=== PATIENT | female | born 1980 | race Hispanic/Latino ===

== ENCOUNTER 2017-06-03 22:33 | Emergency (ER) | payer SELFPAY ==
[2017-06-03 23:02] LABS: Bilirubin Negative (Negative); Blood, Urine Negative (Negative); Glucose, Urine (Dipstick) Negative (Negative); Ketone, Urine Negative (Negative); Nitrite Negative (Negative); Protein, Urine (Dipstick) Negative (Neg-Trace); Urobilinogen 0.2 mg/dL (0.2-1.0)
[2017-06-03 23:48] LABS: #Basophils 0.1 thou/uL (0.0-0.2); #Eosinphils 0.2 thou/uL (0.0-0.7); #Lymphocytes 2.3 thou/uL (1.20-3.40); #Monocytes 0.4 thou/uL (0.11-0.59); %Basophils 0.9 % (0.0-1.0); %Eosinophils 2.4 % (0.0-10.0); %Lymphocytes 33.2 % (21.0-51.0); %Monocytes 6.1 % (0.0-10.0); Hematocrit 29.5 % (36.0-47.0); Mean Platelet Volume 7.3 fL (7.4-10.4); Red Blood Cell (RBC) Count 3.15 mill/uL (4.20-5.40); White Blood Cell (WBC) Count 6.9 thou/uL (4.8-10.8)
[2017-06-04 00:03] LABS: ALT (SGPT) 13 U/L (8-55); AST (SGOT) 19 U/L (5-34); Alkaline Phosphatase 131 U/L (40-150); Anion Gap 11 mmol/L (10-20); BUN (Urea Nitrogen) 9 mg/dL (7.0-18.7); Bilirubin, Total 0.3 mg/dL (0.2-1.2); Calc. Creatinine Clearance 0 mL/min (70-130); Carbon Dioxide 22 mmol/L (22-29); Chloride 108 mmol/L (98-107); Estimated GFR-MDRD Greater than 90; Globulin 3.8 g/dL (2.4-3.5); Lipase 11 U/L (8-78); Protein, Total 7.2 g/dL (6.0-8.3)
[2017-06-04] MEDS ORDERED: Iopamidol 370 76% 100 ML VIAL ONE (07:37)
--- NOTE | 2017-06-04 08:28 | CT ---
PRELIMINARY REPORT/[facility]/EMERGENCY AFTER HOURS PROCEDURE: EXAM: CT Abdomen and Pelvis With Intravenous Contrast CLINICAL HISTORY: 37 years old, female; Pain; Abdominal pain; Generalized; Prior surgery; Surgery type: Hysterectomy, c holecystectomy; Patient HX: , 37f presents to the ed for evaluation of abdominal pain and diarrhea x4 days. Reports blood in the toilet today with the diarrhea. Denies fever, chills. Denies n/v. Reports lower abdominal pain. TECHNIQUE: Axial computed tomography images of the abdomen and pelvis with intravenous contrast. All CT scans at this facility use one or more dose reduction techniques, viz.: automated exposure control; ma/kV adj ustment per patient size (including targeted exams where dose is matched to indication; i.e. head); or iterative reconstruction technique. Coronal reformatted images were created and reviewed. CONTRAST: 96 mL of [id number] administered intravenously. COMPARISON: No relevant prior studies available. FINDINGS: Lower thorax: Small left size hiatal hernia. ABDOMEN: Liver: 1.9 cm hypoattenuating focus within the right hepatic lobe, possibly hemangioma, but not defin itively characterized on this study. Gallbladder and bile ducts: Normal. Pancreas: Normal. Spleen: Normal. Adrenals: Normal. Kidneys and ureters: Normal. Stomach and bowel: Multiple loops of nondilated, gas and fluid-filled small bowel, possibly enteritis . Appendix: Appendix is normal. PELVIS: Bladder: Normal. Reproductive: Normal as visualized. ABDOMEN and PELVIS: Intraperitoneal space: Normal. No free air. No significant fluid collection. Bones/joints: No acute fracture. No dislocation. Soft tissues: Normal. Vasculature: Phleboliths within the pelvis. No abdominal aortic aneurysm. Lymph nodes: Normal. IMPRESSION: 1. Multiple loops of nondilated, gas and fluid-filled small bowel, possibly enteritis. 2. Incidental/non-acute findings are described above. Thank you for allowing us to participate in the care of your patient. Dictated and Authenticated by: Tommie Hanna MD 06/04/2017 1:48 AM Central Time ([place] & [place]) FINAL REPORT EMERGENT AFTER HOURS CT ABDOMEN AND PELVIS WITH IV CONTRAST: DATE: 06/04/17. HISTORY: Abdominal pain and diarrhea for 4 days. IMPRESSION: 1. Hypodense lesion measuring 1.9 cm within the right hepatic lobe. This was not present on the ricky dy of 12/21/11. This cannot be further characterized on this exam. Further evaluation with 3-phase C T scan examination versus MRI is recommended. There is also a subtle low-density lesion in the left hepatic lobe, and this lesion was present on the prior study in 2011 and is slightly smaller in size. 2. Postsurgical changes related to what appears to be a gastric bypass procedure. There is evidence of a hiatal hernia. 3. Cholecystectomy. 4. No CT evidence of appendicitis. 5. Hysterectomy. 6. Nonspecific fluid-filed loops of small bowel which are nondilated. 7. Findings are in agreement with the preliminary report by [facility]. POS: [facility]
== END 2017-06-04 02:25 | disposition home or self-care (01) ==
LOC: ERS 22:33
DX: K52.9 Noninfective gastroenteritis and colitis, unspecified (principal); G43.909 Migraine, unspecified, not intractable, without status migrainosus; F41.9 Anxiety disorder, unspecified; F32.9 Major depressive disorder, single episode, unspecified
CPT/HCPCS: 36415; 74177; 80053; 81003; 82274; 83690; 85025; 87015; 87045; 87046; 87328; 87329; 87449; 87899; 96360; 96361

== ENCOUNTER 2017-09-28 19:59 | Emergency (ER) | payer SELFPAY ==
[2017-09-28 20:29] LABS: #Basophils 0.1 thou/uL (0.0-0.2); #Lymphocytes 1.6 thou/uL (1.20-3.40); #Monocytes 0.5 thou/uL (0.11-0.59); #Neutrophils 5.9 thou/uL (1.40-6.50); %Basophils 0.6 % (0.0-1.0); %Eosinophils 0.5 % (0.0-10.0); %Lymphocytes 20.2 % (21.0-51.0); %Monocytes 5.7 % (0.0-10.0); %Neutrophils 73.1 % (42.0-75.0); Hemoglobin 10.5 g/dL (12.0-16.0); Mean Corpuscular HGB CONC 32.4 g/dL (32.0-36.0); Mean Corpuscular Hemoglobin 31.2 pg (27.0-31.0); Mean Corpuscular Volume 96.1 fl (81.0-99.0); Mean Platelet Volume 7.8 fL (7.4-10.4); Platelet Count 312 thou/uL (130-400); RBC Distribution Width 21.9 % (11.5-14.5); Red Blood Cell (RBC) Count 3.36 mill/uL (4.20-5.40)
[2017-09-28 20:49] LABS: ALT (SGPT) 11 U/L (8-55); AST (SGOT) 18 U/L (5-34); Albumin 4.3 g/dL (3.5-5.0); Alkaline Phosphatase 186 U/L (40-150); Anion Gap 11 mmol/L (10-20); BUN (Urea Nitrogen) 8 mg/dL (7.0-18.7); Bilirubin, Total 0.3 mg/dL (0.2-1.2); Calc. Creatinine Clearance 0 mL/min (70-130); Calcium 8.8 mg/dL (7.8-10.44); Carbon Dioxide 22 mmol/L (22-29); Chloride 108 mmol/L (98-107); Estimated GFR-MDRD Greater than 90; Globulin 4.5 g/dL (2.4-3.5); Glucose 96 mg/dL (70-105); Potassium 3.8 mmol/L (3.5-5.1); Protein, Total 8.8 g/dL (6.0-8.3); Sodium 137 mmol/L (136-145)
[2017-09-28 20:53] LABS: CKMB 0.3 ng/mL (0-6.6); Troponin I Less than 0.010 ng/mL (< 0.028)
[2017-09-28] MEDS ORDERED: ALPRAZolam 0.5 MG TAB ONE (22:10)
[2017-09-28 23:26] LABS: Bilirubin Negative (Negative); Blood, Urine Trace (Negative); Clarity CLOUDY (Clear); Glucose, Urine (Dipstick) Negative (Negative); Leukocyte Large (Negative); Nitrite Positive (Negative); Protein, Urine (Dipstick) Trace mg/dL (Neg-Trace); Specific Gravity, Urine 1.013 (1.002-1.036); pH, Urine 6.5 (5.0-9.0)
[2017-09-28 23:28] LABS: Bacteria/HPF 4+ HPF (None Seen); Hyaline Casts/LPF 7-10 HYALINE CAST LPF (0-3 Hyaline); Squamous Epithelial 0-3 HPF (0-3)
== END 2017-09-28 23:44 | disposition home or self-care (01) ==
LOC: ERS 19:59
DX: F43.9 Reaction to severe stress, unspecified (principal); G43.909 Migraine, unspecified, not intractable, without status migrainosus; F41.9 Anxiety disorder, unspecified; F32.9 Major depressive disorder, single episode, unspecified; Z79.899 Other long term (current) drug therapy
CPT/HCPCS: 36415; 80053; 81003; 81015; 82553; 84443; 84484; 85025; 93005

== ENCOUNTER 2017-11-16 22:36 | Emergency (ER) | payer SELFPAY | END 2017-11-16 23:48 | disposition home or self-care (01) | LOC: ERS 22:36 | DX: L02.214 Cutaneous abscess of groin (principal); G43.909 Migraine, unspecified, not intractable, without status migrainosus; F41.9 Anxiety disorder, unspecified; F32.9 Major depressive disorder, single episode, unspecified | CPT/HCPCS: 99282 ==

== ENCOUNTER 2018-07-04 22:09 | Emergency (ER) | payer SELFPAY ==
[2018-07-04 23:04] LABS: ALT (SGPT) 9 U/L (8-55); AST (SGOT) 15 U/L (5-34); Albumin 3.9 g/dL (3.5-5.0); Alkaline Phosphatase 191 U/L (40-150); Anion Gap 8 mmol/L (10-20); BUN (Urea Nitrogen) 9 mg/dL (7.0-18.7); Bilirubin, Total 0.3 mg/dL (0.2-1.2); Calc. Creatinine Clearance 0 mL/min (70-130); Calcium 8.2 mg/dL (7.8-10.44); Carbon Dioxide 21 mmol/L (22-29); Chloride 113 mmol/L (98-107); Estimated GFR-MDRD Greater than 90; Globulin 3.3 g/dL (2.4-3.5); Glucose 103 mg/dL (70-105); Potassium 3.4 mmol/L (3.5-5.1); Protein, Total 7.2 g/dL (6.0-8.3); Sodium 139 mmol/L (136-145)
[2018-07-04 23:16] LABS: #Basophils 0.1 thou/uL (0.0-0.2); #Eosinphils 0.1 thou/uL (0.0-0.7); #Lymphocytes 2.1 thou/uL (1.20-3.40); #Monocytes 0.4 thou/uL (0.11-0.59); #Neutrophils 3.1 thou/uL (1.40-6.50); %Eosinophils 2.1 % (0.0-10.0); %Lymphocytes 36.9 % (21.0-51.0); %Monocytes 6.1 % (0.0-10.0); %Neutrophils 53.8 % (42.0-75.0); Anisocytosis SLIGHT = 6-15 cells (100X) (0-5/hpf); Hemoglobin 9.6 g/dL (12.0-16.0); Hypochromia SLIGHT = 6-15 cells (100X) (0-5/hpf); MDiff Complete? YES; Macrocytosis SLIGHT = 6-15 cells (100X) (0-5/hpf); Mean Corpuscular HGB CONC 31.5 g/dL (32.0-36.0); Mean Corpuscular Hemoglobin 33.5 pg (27.0-31.0); PLT Morphology Comment Appears Adequate; Platelet Count 292 thou/uL (130-400); RBC Distribution Width 23.6 % (11.5-14.5); Red Blood Cell (RBC) Count 2.85 mill/uL (4.20-5.40); White Blood Cell (WBC) Count 5.8 thou/uL (4.8-10.8)
[2018-07-05 00:50] LABS: Bilirubin Negative (Negative); Blood, Urine Negative (Negative); Clarity CLEAR (Clear); Glucose, Urine (Dipstick) Negative (Negative); Leukocyte Negative (Negative); Nitrite Negative (Negative); Protein, Urine (Dipstick) Negative (Neg-Trace); Specific Gravity, Urine 1.015 (1.002-1.036); pH, Urine 6.5 (5.0-9.0)
[2018-07-05 00:51] LABS: Pregnancy Test - Urine (BHCG) Negative (Negative); Pregu Control Background? CLEAR/WHITE (CLR/WHITE); Pregu Control Bar Appear? YES (CONTROL BAR); Specific Gravity 1.015 (1.002-1.036)
--- NOTE | 2018-07-05 08:28 | CT ---
PRELIMINARY REPORT/[facility]/EMERGENTY AFTER-HOURS PROCEDURE CT Abdomen and Pelvis With Contrast EXAM DATE/TIME: 07/05/2018 12:49 AM CLINICAL HISTORY: 38 years old, female; Pain; Abdominal pain; Prior surgery; Surgery type: Surgical history of gastric bypass, date of surgery 2010, cervical fusion, surgical history of cholecystectomy, surgical history of hysterectomy; Patient HX: 38f presents with abdominal pain and bloating for several days. Reports HX of ibs and this feels different that normal flare. Reports diarrhea currently but sometimes consti pation. Denies fever and chills. Also reports feeling sluggish and difficult concentrating TECHNIQUE: Axial computed tomography images of the abdomen and pelvis with intravenous contrast. Coronal reformatted images were created and reviewed. COMPARISON: No relevant prior studies available. FINDINGS: Lower thorax: No acute findings. ABDOMEN: Liver: Incidental right lobe hepatic hemangioma. Gallbladder and bile ducts: Prior cholecystectomy. Pancreas: Normal. No ductal dilation. Spleen: Normal. No splenomegaly. Adrenals: Normal. No mass. Kidneys and ureters: Normal. No hydronephrosis. Stomach and bowel: Prior gastric bypass. No afferent loop syndrome. No evidence of an internal hernia . Appendix: Normal appendix. PELVIS: Bladder: Unremarkable as visualized. Reproductive: Prior hysterectomy. 2.2 cm dominant follicle of the right ovary. ABDOMEN and PELVIS: Intraperitoneal space: Normal. No free air. No significant fluid collection. Bones/joints: No acute fracture. No dislocation. Soft tissues: Unremarkable. Vasculature: Normal. No abdominal aortic aneurysm. Lymph nodes: Normal. No enlarged lymph nodes. IMPRESSION: 2.2 cm dominant follicle of the right ovary. Thank you for allowing us to participate in the care of your patient. Dictated and Authenticated by: Fabrizio Mckinley MD 07/05/2018 1:47 AM Central Time ([place] & [place]) FINAL REPORT CT ABDOMEN AND PELVIS WITH CONTRAST: History Abdominal pain. COMPARISON: CT abdomen and pelvis 06/04/2017. FINDINGS: Findings and impression are concordant with the preliminary report. POS: [facility]
== END 2018-07-05 02:47 | disposition home or self-care (01) ==
LOC: ERS 22:09
DX: R10.30 Lower abdominal pain, unspecified (principal); G43.909 Migraine, unspecified, not intractable, without status migrainosus; F41.9 Anxiety disorder, unspecified; F32.9 Major depressive disorder, single episode, unspecified; Z79.899 Other long term (current) drug therapy
CPT/HCPCS: 36415; 74177; 80053; 81003; 81025; 83690; 85025

== ENCOUNTER 2019-01-24 21:36 | Emergency (ER) | payer SELFPAY ==
[2019-01-24] MEDS ORDERED: diphenhydrAMINE 50 MG/ML VIAL ONE (22:17)
[2019-01-24] MEDS ORDERED: Ketorolac Tromethamine 30 MG/ML VIAL ONE (22:17)
[2019-01-24] MEDS ORDERED: Prochlorperazine 10 MG/2 ML VIAL ONE (22:17)
== END 2019-01-25 00:20 | disposition home or self-care (01) ==
LOC: SCSER 21:36
DX: K04.4 Acute apical periodontitis of pulpal origin (principal); R51 Headache; K02.9 Dental caries, unspecified; D64.9 Anemia, unspecified; F41.9 Anxiety disorder, unspecified; F32.9 Major depressive disorder, single episode, unspecified
CPT/HCPCS: 96365; 96366; 96375; J0780; J1200; J1885

== ENCOUNTER 2019-10-13 12:12 | Emergency (ER) | payer MEDICARE, SELFPAY ==
[2019-10-13] MEDS ORDERED: Magnesium 2 GM/50 ML BAG (IN WATER) ONE (12:47)
[2019-10-13] MEDS ORDERED: Acetaminophen 500 MG TAB ONE (12:47)
[2019-10-13] MEDS ORDERED: Metoclopramide HCl 10 MG/2 ML VIAL ONE (12:47)
--- NOTE | 2019-10-13 13:12 | CT ---
CT BRAIN WITHOUT CONTRAST: HISTORY: Headache in the back of the head. COMPARISON: 12/04/2009. FINDINGS: No evidence of acute infarct, hemorrhage, midline shift, or abnormal extraaxial fluid collections are seen. The ventricular size is normal and the basilar cisterns are patent. The bony calvarium is in tact. The visualized paranasal sinuses and mastoid air cells are well aerated. There is a small sca lp hematoma in the left posterior parietal region. IMPRESSION: 1. No CT evidence of acute intracranial process. 2. Left parietal scalp contusion. POS: [facility]
[2019-10-13] MEDS ORDERED: Ketorolac Tromethamine 30 MG/ML VIAL ONE (13:59)
== END 2019-10-13 14:47 | disposition home or self-care (01) ==
LOC: ERS 12:12
DX: S00.03XA Contusion of scalp, initial encounter (principal); G40.909 Epilepsy, unspecified, not intractable, without status epilepticus; D64.9 Anemia, unspecified; F41.9 Anxiety disorder, unspecified; F32.9 Major depressive disorder, single episode, unspecified; Z79.84 Long term (current) use of oral hypoglycemic drugs; Z79.899 Other long term (current) drug therapy; X58.XXXA Exposure to other specified factors, initial encounter
CPT/HCPCS: 70450; 96365; 96368; 96375; J1885; J2765; J3475

== ENCOUNTER 2019-10-23 18:45 | Emergency (ER) | payer MEDICARE ==
--- NOTE | 2019-10-23 19:37 | CT ---
CT head noncontrast HISTORY: Headache. COMPARISON: 10/13/2019. FINDINGS: There is no evidence of acute intracranial hemorrhage or infarct. The ventricles appear nor mal in size, shape and position. There is no mass effect or shift of midline structures. Scalp swelling at the left parietal level is decreased. IMPRESSION : No acute intracranial abnormalities are demonstrated.
[2019-10-23 19:39] LABS: #Basophils 0.1 thou/uL (0.0-0.2); #Eosinphils 0.1 thou/uL (0.0-0.7); #Lymphocytes 2.1 thou/uL (1.20-3.40); #Monocytes 0.3 thou/uL (0.11-0.59); #Neutrophils 2.8 thou/uL (1.40-6.50); %Basophils 1.4 % (0.0-1.0); %Eosinophils 1.3 % (0.0-10.0); %Lymphocytes 38.9 % (21.0-51.0); %Monocytes 5.9 % (0.0-10.0); %Neutrophils 52.6 % (42.0-75.0); Hemoglobin 13.4 g/dL (12.0-16.0); Mean Corpuscular HGB CONC 33.2 g/dL (32.0-36.0); Mean Corpuscular Hemoglobin 34.3 pg (27.0-31.0); Mean Platelet Volume 8.7 fL (7.4-10.4); Platelet Count 207 thou/uL (130-400); RBC Distribution Width 12.5 % (11.5-14.5); White Blood Cell (WBC) Count 5.3 thou/uL (4.8-10.8)
[2019-10-23 19:46] LABS: PTT 27.1 SEC (22.9-36.1); Prothrombin Time 13.3 SEC (12.0-14.7)
[2019-10-23 20:10] LABS: ALT (SGPT) 13 U/L (8-55); AST (SGOT) 17 U/L (5-34); Albumin 3.7 g/dL (3.5-5.0); Alkaline Phosphatase 78 U/L (40-110); Anion Gap 9 mmol/L (10-20); BUN (Urea Nitrogen) 11 mg/dL (7.0-18.7); Bilirubin, Total 0.3 mg/dL (0.2-1.2); Calc. Creatinine Clearance 0 mL/min (70-130); Calcium 8.4 mg/dL (7.8-10.44); Carbon Dioxide 23 mmol/L (22-29); Chloride 110 mmol/L (98-107); Estimated GFR-MDRD 85; Glucose 80 mg/dL (70-105); Potassium 3.7 mmol/L (3.5-5.1); Protein, Total 6.7 g/dL (6.0-8.3); Sodium 138 mmol/L (136-145)
== END 2019-10-23 20:45 | disposition home or self-care (01) ==
LOC: ERS 18:45
DX: S00.03XA Contusion of scalp, initial encounter (principal); S00.432A Contusion of left ear, initial encounter; S00.431A Contusion of right ear, initial encounter; S40.012A Contusion of left shoulder, initial encounter; S00.83XA Contusion of other part of head, initial encounter; G43.909 Migraine, unspecified, not intractable, without status migrainosus; D64.9 Anemia, unspecified; F41.9 Anxiety disorder, unspecified; F32.9 Major depressive disorder, single episode, unspecified; Z79.899 Other long term (current) drug therapy; W18.30XA Fall on same level, unspecified, initial encounter
CPT/HCPCS: 70450; 80053; 85025; 85610; 85730

== ENCOUNTER 2019-11-11 09:09 | Outpatient (CLI) | payer MEDICARE ==
--- NOTE | 2019-11-11 11:38 | MRI ---
MRI CERVICAL SPINE WITHOUT CONTRAST: Date: 11/11/2019 COMPARISON: 04/27/2011. HISTORY: Bilateral arm weakness, history of prior cervical fusion, neck pain following a fall in October 2019. TECHNIQUE: Multiplanar, multisequence MR imaging of the cervical spine provided without contrast. FINDINGS: There has been interval anterior diskectomy and fusion at C5-6/C6-7. Detail assessment in this region is limited by hardware artifact. The study is also somewhat limited secondary to motion artifact. Th e sagittal STIR imaging demonstrates no discrete focal area of osseous marrow edema. There is stable mild/moderate degenerative change at the atlantoaxial interspace. Craniocervical and cervicothoracic junction appears intact. C2-3: No central canal or neural foraminal stenosis. C3-4: Mild disc bulge, new. Partial effacement of ventral thecal sac with mild central canal stenosi s. Bilateral uncovertebral osteophyte formation, left greater than right. Mild left and moderate righ t neural foraminal stenosis, similar when compared to the prior examination. C4-5: There is disc space narrowing with disc desiccation and disc bulge, worsened since the prior e xamination. Disc bulge effaces the ventral thecal sac and abuts the ventral aspect of the cord causin g a moderate degree of central canal stenosis, worsened since prior imaging. Stable bilateral facet a nd uncovertebral osteophyte formation noted with mild/moderate bilateral neural foraminal stenosis, l eft greater than right. C5-6: There is bilateral uncovertebral osteophyte formation, left greater than right. A focal disc o steophyte complex is present within the right paracentral region, decreased in conspicuity when heydi red to prior imaging. There is a mild degree of central canal stenosis laterally on the right. On the basis of facet and uncovertebral osteophyte formation, there is moderate/severe bilateral neural for aminal stenosis, which appears similar when compared to prior imaging. C6-7: Bilateral facet and uncovertebral osteophyte formation present with moderate/severe bilateral neural foraminal stenosis, not significantly changed. There is disc space narrowing with disc desicca tion and mild disc bulge partially effacing the ventral thecal sac and causing mild central canal della nosis. C7-T1: Bilateral facet and uncovertebral osteophyte formation, right greater than left. There is mil d left and moderate/severe right neural foraminal stenosis, similar when compared to prior imaging. T here is no significant central canal stenosis. No focal area of abnormal signal intensity is identified within the cervical cord. IMPRESSION: Postoperative and degenerative change within the cervical spine as detailed above. Detailed assessmen t is slightly limited secondary to hardware artifact and motion artifact. POS: [facility]
== END 2019-11-11 09:10 | disposition home or self-care (01) ==
LOC: BICMRI 09:09
PROVIDERS: ATTEND Family Medicine
DX: R29.898 Other symptoms and signs involving the musculoskeletal system (principal); M47.812 Spondylosis without myelopathy or radiculopathy, cervical region; Z98.1 Arthrodesis status
CPT/HCPCS: 72141

== ENCOUNTER 2019-12-08 13:04 | Emergency (ER) | payer MEDICARE, OTHER ==
[2019-12-08 18:33] LABS: SARS-CoV-2 MS2 Positive; SARS-CoV-2 N Gene Positive; SARS-CoV-2 S Gene Positive; SARS-CoV-2 orf1ab Positive
== END 2019-12-08 13:27 | disposition home or self-care (01) ==
LOC: ERS 13:04
DX: U07.1 COVID-19 (principal); R05 Cough; G43.909 Migraine, unspecified, not intractable, without status migrainosus; D64.9 Anemia, unspecified; F41.9 Anxiety disorder, unspecified; F32.9 Major depressive disorder, single episode, unspecified
CPT/HCPCS: 99283; U0003; 87635

== ENCOUNTER 2020-01-21 10:47 | Outpatient (CLI) | payer MEDICARE, MEDICAID ==
--- NOTE | 2020-01-21 13:01 | MRI ---
LUMBAR SPINE MRI WITHOUT CONTRAST: DATE: 01/21/2020. HISTORY: Back pain, lumbar radiculopathy, pain in the left hip to the left knee. TECHNIQUE: Multiplanar, multisequence MR imaging of the lumbar spine provided without contrast. FINDINGS: The sagittal STIR imaging demonstrates no focal area of osseous marrow edema. On the basis of 5 lumb ar-type vertebral bodies, the conus medullaris terminates at L1. T12-L1: Intervertebral disk height and signal intensity within normal limits with no significant lorenzo tral canal or neural foraminal stenosis. Mild facet hypertrophy bilaterally. L1-2: Mild bilateral facet hypertrophy. Intervertebral disk height and signal intensity within norm al limits with no significant central canal or neural foraminal stenosis. L2-3: There is disk space narrowing with disk desiccation and minimal disk bulge. There is a minima l degree of bilateral facet hypertrophy. There is no significant central canal or neural foraminal s tenosis. L3-4: There is disk space narrowing with disk desiccation and a central annular tear. Mild disk bul ge present with a small superimposed central disk protrusion. No significant associated neural juancarlos inal or central canal stenosis. L4-5: There is disk space narrowing with disk desiccation. There is a right paracentral annular tea r. There is mild right-sided facet hypertrophy. No significant central canal or neural foraminal st enosis. L5-S1: Minimal disk bulge with no cardiac silhouette. There is no right neural foraminal stenosis. There is moderate left neural foraminal stenosis on the basis of mild left facet hypertrophy as well as a probable small disk-osteophyte complex in the left foraminal region. The visualized retroperitoneal structures demonstrate minimal prominence of the right renal collectin g system. IMPRESSION: 1. Multilevel degenerative change of the lumbar spine as detailed above. 2. Mild prominence of the renal collecting system on the right for which renal ultrasound is advised . POS: [facility]
== END 2020-01-21 10:48 | disposition home or self-care (01) ==
LOC: TBSIIMAG 10:47
PROVIDERS: ATTEND Neurological Surgery
DX: M47.26 Other spondylosis with radiculopathy, lumbar region (principal)
CPT/HCPCS: 72148

== ENCOUNTER 2020-03-04 08:11 | Outpatient (CLI) | payer MEDICARE, MEDICAID ==
--- NOTE | 2020-03-04 08:32 | RAD ---
AP view of the pelvis INDICATION: Pelvic pain COMPARISON: None. FINDINGS: Bones: No acute fracture or subluxation is evident. Bone mineralization appears within normal limits. Hips: Intact. SI joints and symphysis pubis: Normal appearing. Intrapelvic contents: Small vascular clip is seen within the pelvis. There are phleboliths within the pelvis. Visualized bowel gas pattern is unobstructed. IMPRESSION: No acute osseous abnormality.
--- NOTE | 2020-03-04 09:28 | RAD ---
LEFT HIP 2 VIEWS: HISTORY: Pain down left leg from hip and groin. FINDINGS: No acute fracture, dislocation, or other significant acute osseous process. IMPRESSION: Unremarkable left hip 2 views. POS: [facility]
== END 2020-03-04 08:12 | disposition home or self-care (01) ==
LOC: TBSIIMAG 08:11
PROVIDERS: ATTEND Neurological Surgery
DX: M25.552 Pain in left hip (principal); R10.30 Lower abdominal pain, unspecified
CPT/HCPCS: 72170

== ENCOUNTER 2020-05-05 12:04 | Emergency (ER) | payer MEDICARE, MEDICAID ==
--- NOTE | 2020-05-05 13:37 | ULT ---
Pelvic sonogram transabdominal and transvaginal imaging HISTORY: Pelvic pain and bleeding. Prior hysterectomy. FINDINGS: Urinary bladder is decompressed and not well evaluated. The uterus not visualized. Reported ly surgically absent, as is the left ovary. Right ovary not visualized with transabdominal or transvaginal imaging. No right adnexal mass or free fluid apparent. IMPRESSION : Previous hysterectomy. No abnormalities are demonstrated.
[2020-05-05 15:41] LABS: #Lymphocytes 1.8 thou/uL (1.20-3.40); #Monocytes 0.3 thou/uL (0.11-0.59); #Neutrophils 3.7 thou/uL (1.40-6.50); %Basophils 0.5 % (0.0-1.0); %Eosinophils 0.5 % (0.0-10.0); %Lymphocytes 30.5 % (21.0-51.0); %Monocytes 5.5 % (0.0-10.0); %Neutrophils 62.9 % (42.0-75.0); Mean Corpuscular HGB CONC 33.4 g/dL (32.0-36.0); Mean Corpuscular Volume 98.9 fL (78.0-98.0); Mean Platelet Volume 8.7 fL (7.4-10.4); Platelet Count 190 thou/uL (130-400); RBC Distribution Width 11.8 % (11.5-14.5); Red Blood Cell (RBC) Count 4.23 mill/uL (4.20-5.40); White Blood Cell (WBC) Count 5.9 thou/uL (4.8-10.8)
[2020-05-05 15:48] LABS: BHCG - Serum Negative (NEGATIVE); Pregs Control Background? CLEAR/WHITE (CLR/WHITE); Pregs Control Bar Appear? YES (CONTROL BAR)
[2020-05-05 16:07] LABS: ALT (SGPT) 13 U/L (8-55); AST (SGOT) 19 U/L (5-34); Albumin 3.7 g/dL (3.5-5.0); Alkaline Phosphatase 82 U/L (40-110); Anion Gap 11 mmol/L (10-20); BUN (Urea Nitrogen) 10 mg/dL (7.0-18.7); Bilirubin, Total 0.5 mg/dL (0.2-1.2); Calc. Creatinine Clearance 0 mL/min (70-130); Calcium 8.9 mg/dL (7.8-10.44); Carbon Dioxide 24 mmol/L (22-29); Chloride 107 mmol/L (98-107); Estimated GFR-MDRD 86; Globulin 3.6 g/dL (2.4-3.5); Glucose 93 mg/dL (70-105); Potassium 3.8 mmol/L (3.5-5.1); Protein, Total 7.3 g/dL (6.0-8.3); Sodium 138 mmol/L (136-145)
[2020-05-05] MEDS ORDERED: HYDROcodone/Acetaminophen 10/325 mg Tablet ONE (16:22)
[2020-05-05] MEDS ORDERED: Azithromycin 250 MG TAB ONE ×2 (16:23→16:24)
[2020-05-05] MEDS ORDERED: cefTRIAXone\\ROCEPHIN 250 MG VIAL ONE (16:23)
[2020-05-05] MEDS ORDERED: Lidocaine 1% PF 5 ML VIAL ONE (16:25)
[2020-05-05 16:53] LABS: Bacteria/HPF 2+ HPF (None Seen); Bilirubin Negative (Negative); Blood, Urine 1+ (Negative); Clarity Turbid (Clear); Glucose, Urine (Dipstick) Normal (Negative); Ketone, Urine Negative (Negative); Leukocyte 250 Leu/uL (Negative); Nitrite 2+ (Negative); Protein, Urine (Dipstick) Negative (Neg-Trace); Squamous Epithelial 0-3 HPF (0-3); Urobilinogen Normal mg/dL (Less than 2); WBC/HPF 21-50 HPF (0-3); pH, Urine 5.5 (5.0-9.0)
== END 2020-05-05 16:41 | disposition home or self-care (01) ==
LOC: ERS 12:04 → EEVIPCON 12:04 → ERS 16:41
DX: N72 Inflammatory disease of cervix uteri (principal); A60.04 Herpesviral vulvovaginitis; G43.909 Migraine, unspecified, not intractable, without status migrainosus; F41.9 Anxiety disorder, unspecified; F32.9 Major depressive disorder, single episode, unspecified
CPT/HCPCS: 36415; 76856; 80053; 81003; 81015; 84703; 85025; 87077; 87086; 87186; 87480; 87491; 87510; 87591; 87660; 96372; J0696

== ENCOUNTER 2022-03-17 08:49 | Outpatient (CLI) | payer OTHER, MEDICAID ==
[2022-03-17] MEDS ORDERED: Iopamidol-370 76% 500 ML 1 ML ONE (09:39)
== END 2022-03-17 08:50 | disposition home or self-care (01) ==
LOC: BICCT 08:49
PROVIDERS: ATTEND Physician Assistant Medical
DX: K59.00 Constipation, unspecified (principal); K62.5 Hemorrhage of anus and rectum; R11.2 Nausea with vomiting, unspecified; R07.89 Other chest pain; R10.13 Epigastric pain
CPT/HCPCS: 74177; Q9967